=== PATIENT | male | born 1990 | race African-American/Black ===

== ENCOUNTER 2016-06-23 19:46 | Emergency (ER) | payer SELFPAY ==
[2016-06-23 23:42] LABS: CHLAMYDIA TRACH PCR NOT DETECTED (NOT DETEC); SOURCE: MALE URINE
[2016-06-23 23:44] LABS: GC PCR DETECTED (NOT DETECT)
== END 2016-06-23 21:34 | disposition home or self-care (01) ==
LOC: ER 19:46
PROVIDERS: Physician Assistant
DX: A64 Unspecified sexually transmitted disease (principal); K59.00 Constipation, unspecified
CPT/HCPCS: 87491; 87591; 96372; 99283; A9270-GY; J0696